=== PATIENT | female | born 1985 | race Caucasian/White ===

== ENCOUNTER 2016-06-29 22:26 | Emergency (ER) | payer SELFPAY ==
[2016-06-29 22:58] LABS: Urine Bacteria 2+ (Absent); Urine Bilirubin Negative (Negative); Urine Glucose Negative (Negative); Urine Nitrite Negative (Negative)
[2016-06-29 23:05] LABS: Benzodiazepine Urine Screen None Detected (None Detect)
[2016-06-29] MEDS ORDERED: Sulfamethox/Trimethoprim DS 800/160* TAB PO ONE (23:52)
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
[2016-06-30 00:14] LABS: Hematocrit 33 % (35-47); Hemoglobin 11.1 g/dl (12.0-16.0); Mean Corpuscular HGB Conc 34 g/dl (31-36); Mean Corpuscular Hemoglobin 26 pg (27-31); Mean Corpuscular Volume 77 fL (80-97); Mean Platelet Volume 8 um3 (7.4-10.4); Red Blood Count 4.27 10^6/ul (4.0-5.4); Red Cell Distribution Width 14 % (10.5-15); White Blood Count 8.4 10^3/ul (3.5-10.8)
[2016-06-30 00:18] LABS: ALT 16 U/L (7-52); AST 15 U/L (13-39); Albumin 3.6 g/dL (3.2-5.2); Alkaline Phosphatase 53 U/L (34-104); Anion Gap 10 mmol/L (2-11); BUN/Creatinine Ratio 18.1 (8-20); Blood Urea Nitrogen 17 mg/dL (6-24); CO2 Carbon Dioxide 24 mmol/L (22-32); Calcium 9.1 mg/dL (8.6-10.3); Chloride 100 mmol/L (101-111); EGFR African American 91.2 (>60); EGFR Non-African American 70.9 (>60); Globulin 3.4 g/dL (2-4); Glucose 100 mg/dL (70-100); Potassium 3.3 mmol/L (3.5-5.0); Sodium 134 mmol/L (133-145)
[2016-06-30 00:56] LABS: Acetaminophen < 15 mcg/mL; Alcohol < 10 mg/dL (<10); Salicylate < 2.50 mg/dL (<30)
[2016-06-30 01:06] LABS: TSH (Thyroid Stimulating Horm) 4.71 mcIU/mL (0.34-5.60)
[2016-06-30] MEDS ORDERED: LORazepam TAB(*) 1 MG PO ONE (02:11)
[2016-06-30] MEDS ORDERED: LORazepam TAB(*) 1 MG ONE (02:14)
[2016-06-30 03:00] VITALS: BP 121/54
--- NOTE | 2016-07-03 07:42 | PN ---
Progress Note - Progress Note Note: Patient's cultures are positive for UTI. A message was left for her to call on her cell phone regarding which pharmacy she would like a prescription sent to, and instructions to call the ED back.
== END 2016-06-30 02:54 | disposition home or self-care (01) ==
LOC: ED 22:26
DX: F19.10 Other psychoactive substance abuse, uncomplicated (principal); N39.0 Urinary tract infection, site not specified; L03.90 Cellulitis, unspecified; Z00.8 Encounter for other general examination; F17.210 Nicotine dependence, cigarettes, uncomplicated
CPT/HCPCS: 36415; 80053; 80307; 80320; 80329; 81003; 81015; 84443; 84702; 85025; 87077; 87086; 87186; 99283; A9270-GY; G0480

== ENCOUNTER 2018-02-21 16:24 | Inpatient (IN) | payer SELFPAY ==
[2018-02-21] MEDS: NS 0.9% 1000 ML*IV.FLUID IV ONE ×2 (16:39→17:16)
[2018-02-21] MEDS ORDERED: Vancomycin(*) 1,000 MG in NS 0.9% 250 ML* 250 ML IVPB ONE (16:40)
[2018-02-21] MEDS ORDERED: Acetaminophen TAB* 325 MG PO ONE (16:42)
[2018-02-21] MEDS ORDERED: Levofloxacin 750 MG IVPREMIX(* 750 MG/150 ML BAG IVPB ONE (16:42)
[2018-02-21] MEDS ORDERED: Piperacillin/Tazobac ADVAN(*) 3.375 GM in NS 0.9% 100 ML* 100 ML IVPB ONE (16:42)
[2018-02-21] MEDS ORDERED: Dexamethasone IV* 4 MG/ML 1 ML (4 MG) IV SLOW PU ONE (16:43)
--- NOTE | 2018-02-21 17:22 | RAD ---
INDICATION: Altered mental status COMPARISON: None. TECHNIQUE: Single AP portable view of the chest was obtained. FINDINGS: Image quality is compromised due to the relative inferiority of a portable chest x-ray. The heart and mediastinum exhibit normal size and contour. The lungs are grossly clear. There is no evidence of a large pleural effusion. Visualized bones are normal for the patient's age. IMPRESSION: No radiographic evidence for acute cardiopulmonary abnormality on this portable chest x-ray.
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
[2018-02-21] MEDS ORDERED: NS 0.9% 250 ML* 250 ML ONE (17:26)
[2018-02-21] MEDS ORDERED: Iodixanol* (CONTRAST) 320 MG/ML 100 ML SDV IV ONE (17:29)
[2018-02-21 17:32] LABS: ABS Basophils 0 10^3/ul (0-0.2); ABS Eosinophils 0 10^3/ul (0-0.6); ABS Lymphocytes 0.3 10^3/ul (1.0-4.8); ABS Monocytes 0 10^3/ul (0-0.8); ABS Neutrophils 5.5 10^3/ul (1.5-7.7); ABS Nucleated RBC 0 10^3/ul; Eosinophil % 0.2 % (0-6); Hematocrit 34 % (35-47); Hemoglobin 11.3 g/dl (12.0-16.0); Lymphocyte % 5.3 % (25-47); Mean Corpuscular HGB Conc 33 g/dl (31-36); Mean Corpuscular Hemoglobin 28 pg (27-31); Mean Corpuscular Volume 84 fL (80-97); Mean Platelet Volume 8.9 um3 (7.4-10.4); Nucleated Red Blood Cells % 0.1; Platelet Count 138 10^3/ul (150-450); Red Blood Count 4.08 10^6/ul (4.00-5.40); Red Cell Distribution Width 16 % (10.5-15); White Blood Count 5.9 10^3/ul (3.5-10.8)
[2018-02-21 17:51] LABS: EGFR Non-African American 42.4 (>60)
[2018-02-21 18:08] LABS: INR 1.11 (0.77-1.02)
[2018-02-21] MEDS ORDERED: NS 0.9% 1000 ML* 1,000 ML IV ONE (18:28)
[2018-02-21 18:38] LABS: Body Fluid Source Cerebral Spinal
[2018-02-21] MEDS ORDERED: Norepinephrine 16MCG/ML IVPRE* 4,000 MCG/250 ML BAG IV ONE (18:46)
--- NOTE | 2018-02-21 18:48 | RAD ---
EXAM: CT Lumbar Spine With Intravenous Contrast CLINICAL HISTORY: 32 years old, female; Signs and symptoms; Other: Possible od; Additional info: Assess for epidural abscess TECHNIQUE: Axial computed tomography images of the lumbar spine with intravenous contrast. All CT scans at this facility use at least one of these dose optimization techniques: automated exposure control; mA and/or kV adjustment per patient size (includes targeted exams where dose is matched to clinical indication); or iterative reconstruction. Coronal and sagittal reformatted images were created and reviewed. CONTRAST: 75 mL of VISI administered intravenously. COMPARISON: No relevant prior studies available. FINDINGS: Vertebrae: See below. Discs/spinal canal/neural foramina: Mild degenerative disc disease at the L5-S1 level with posterior osteophyte formation. No spinal canal stenosis. No abscess. Soft tissues: Unremarkable. IMPRESSION: 1. No acute fracture, subluxation, or aggressive osseous lesion. 2. No epidural abscess. To contact [facility] with a general question: [facility] - [phone] For direct physician to physician contact: Physician Hotline - [phone] [facility] ([facility] Facility ID #[id number])
--- NOTE | 2018-02-21 18:50 | RAD ---
EXAM: CT Head Without Intravenous Contrast CLINICAL HISTORY: 32 years old, female; Pain; Additional info: Septic shock, drug user TECHNIQUE: Axial computed tomography images of the head/brain without intravenous contrast. All CT scans at this facility use at least one of these dose optimization techniques: automated exposure control; mA and/or kV adjustment per patient size (includes targeted exams where dose is matched to clinical indication); or iterative reconstruction. COMPARISON: BRAIN WO CT BRAIN WO 07/03/2015 5:38 PM FINDINGS: Brain: Unremarkable. No hemorrhage. No significant white matter disease. No edema. Ventricles: Unremarkable. No ventriculomegaly. Bones/joints: Unremarkable. No acute fracture. Soft tissues: Unremarkable. Sinuses: Unremarkable as visualized. No acute sinusitis. Mastoid air cells: Unremarkable as visualized. No mastoid effusion. IMPRESSION: 1. No acute intracranial abnormality. 2. No change from the comparison study. To contact [facility] with a general question: [facility] - [phone] For direct physician to physician contact: Physician Hotline - [phone] [facility] ([facility] Facility ID #[id number])
--- NOTE | 2018-02-21 18:52 | RAD ---
EXAM: CT Head With Intravenous Contrast CLINICAL HISTORY: 32 years old, female; Signs and symptoms; Other: Possible od; Additional info: Septic shock, drug user TECHNIQUE: Axial computed tomography images of the head/brain with intravenous contrast. All CT scans at this facility use at least one of these dose optimization techniques: automated exposure control; mA and/or kV adjustment per patient size (includes targeted exams where dose is matched to clinical indication); or iterative reconstruction. CONTRAST: 75 mL of administered intravenously. COMPARISON: BRAIN WO CT BRAIN WO 02/21/2018 5:41 PM FINDINGS: Brain: Unremarkable. No hemorrhage. No edema. Normal enhancement. Ventricles: Unremarkable. No ventriculomegaly. Bones/joints: Unremarkable. No acute fracture. Soft tissues: Unremarkable. Sinuses: Unremarkable as visualized. No acute sinusitis. Mastoid air cells: Unremarkable as visualized. No mastoid effusion. IMPRESSION: 1. Normal CT of the brain with enhancement. To contact [facility] with a general question: [facility] - [phone] For direct physician to physician contact: Physician Hotline - [phone] [facility] ([facility] Facility ID #[id number])
[2018-02-21 18:54] LABS: Urine Appearance Cloudy; Urine Blood 2+ (Negative); Urine Color Yellow; Urine Ketones Negative (Negative); Urine Protein 2+(100 mg/dL) (Negative); Urine Red Blood Cell 2+(6-10/hpf) (Absent); Urine Urobilinogen Negative (Negative); Urine White Blood Cell Trace(0-5/hpf) (Absent)
--- NOTE | 2018-02-21 18:57 | ED ---
Progress - Progress Note Progress Note: Revised the care of the physician stylist assistant who I cared for the patient in conjunction with. I performed a history and physical on this patient. I was present throughout the course of the lumbar puncture and performed the ibarra portions of the procedure myself. History: IV drug user presents with altered mental status. Found wandering on porch of the community. Found to be hot and tachycardic. Febrile on arrival here and able to provide a limited history. Recent use of heroin. Physical exam: Somnolent and altered with noted moderate distress. Hypotensive. Tachycardic but not tachypneic. Abdomen soft. No evidence of abscess in the extremities. Tract paredes noted. Mild neck discomfort but difficult to ascertain meningismus. No stiffness. No cardiac murmur. Plan: This patient presents with likely sepsis with superimposed drug effect. She is altered. A head CT with and without contrast was obtained after discussion with ICU physician and neurology. A lumbar spine CT was also obtained prior to lumbar puncture and the possibility of epidural abscess. She has no neurologic deficit other than her confusion. Lumbar puncture was performed without difficulty and clear fluid was obtained. Triple antibiotics, greater than 30 mL per kilo of IV fluids was given. Blood pressures have maintained in the 80s and 90s. IV vasopressors had not yet had to be given. She does have good capillary refill and a heart rate hovering between 100-105. The hospitalist was contacted for admission. Consultations: Dr. Anderson from ICU, Dr. lopez from neurology, Dr. Oneil from hospitalist medicine Critical care time of greater than 75 minutes performed by co Critical care time is exclusive of separately billable procedures. Course/Dx - Course Course Of Treatment: During the course of treatment, patient is noted to be hypotensive on arrival at 80/60, temporal temp at 106.4, tachycardic at 109 and respirations of 30. Septic protocol initiated including a CT brain with and without contrast. She is given 2200 IV normal saline, Decadron, Levaquin and Zosyn. 4 blood cultures obtained, 2 from each arm. - Diagnoses Provider Diagnoses: Septic shock, Heroin abuse - Critical Care Time Critical Care Time: 75-104 min Discharge - Sign-Out/Discharge Documenting (check all that apply): Patient Departure - Discharge Plan Condition: Critical Disposition: ADMITTED TO [facility] Referrals: Samreen Spears MD [Primary Care Provider] - - Billing Disposition and Condition Condition: CRITICAL Disposition: Admitted to [facility] - Attestation Statements Document Initiated by Scribdemario: No
[2018-02-21] MEDS ORDERED: Thiamine IV* 100 MG/ML 2 ML VIAL IV SCH (20:40)
[2018-02-21] MEDS ORDERED: Calcium Gluconate INJ* 1 GM in NS 0.9% 50 ML* 50 ML IVPB ONE (20:42)
[2018-02-21] MEDS ORDERED: NS 0.9% 1000 ML* 1,000 ML IV SCH (20:45)
[2018-02-21] MEDS ORDERED: Vancomycin(*) 1,250 MG in NS 0.9% 250 ML* 250 ML IVPB ONE (20:46)
--- NOTE | 2018-02-21 21:08 | ADMNOTE ---
Subjective Date of Service: 02/21/18 Interval History: hpi this is 32 yr old female was brought to er after she was found wondering around on streets. pt was found to spike high temp to 102.2 sbp was in the 70s and tachycardia at rate of 107. intial wbc is [address] neg spine ct neg of abscess chest x ray neg. lactic is 3.4 but even ua is neg. urine toxin is + opioids pt subsequently went for spinal tap showed wbc of 3 but neg of sig neutrophile pred/glucose is 73 and tp is 30. pt was found to have very elevated lft not sure she has hx of ivda and etoh dep ---> hep b/c screening sent for am lab pt got levaquin/zosyn/vanco from the er for ? Family History: Findings - unable due to ms change Social History: Findings - unable due to ms change Past Medical History: Findings - possible ivda urine + opiods ? etoh Review of Systems - Measurements Intake and Output: Intake and Output Last 24 Hours 02/19/18 02/20/18 02/21/18 02/22/18 06:59 06:59 06:59 06:59 Intake Total 3100 Balance 3100 Weight 161 lb Intake: IV Fluids 3100 - Review of Systems General Comments: lethargic and confused unable Objective Active Medications: Heparin Sodium (Porcine) (Heparin Vial(*)) 5,000 units SUBCUT Q8HR JONI Norepinephrine Bitartrate (Levophed 16 Mcg/Ml Premix Bag*) 4,000 mcg in 250 mls @ 9.375 mls/hr IV ED ONCE ONE; Protocol Stop: 02/22/18 21:25 Sodium Chloride (Ns 0.9% 1000 Ml*) 1,000 mls @ 125 mls/hr IV PER RATE JONI Calcium Gluconate 1 gm/ Sodium (Chloride) 60 mls @ 60 mls/hr IVPB ONCE ONE Stop: 02/21/18 21:41 Vancomycin HCl 1,250 mg/ (Sodium Chloride) 250 mls @ 166.667 mls/hr IVPB ONCE ONE Stop: 02/21/18 22:15 Piperacillin Sod/Tazobactam (Sod 3.375 gm/ Sodium Chloride) 100 mls @ 25 mls/ hr IVPB Q8H JONI Thiamine HCl (Vitamin B1 Iv*) 100 mg IV DAILY JONI Vital Signs - 8 hr 02/21/18 02/21/18 02/21/18 16:30 16:32 16:35 Temperature 103.2 F Pulse Rate 114 112 113 Respiratory 23 14 Rate Blood Pressure 102/59 102/59 (mmHg) O2 Sat by Pulse 97 98 98 Oximetry 02/21/18 02/21/18 02/21/18 16:36 16:39 17:00 Temperature Pulse Rate 114 115 109 Respiratory 24 25 21 Rate Blood Pressure 89/49 94/56 98/69 (mmHg) O2 Sat by Pulse 99 98 99 Oximetry 02/21/18 02/21/18 02/21/18 17:01 17:07 17:13 Temperature 101.8 F 102.4 F Pulse Rate 110 110 110 Respiratory 28 21 22 Rate Blood Pressure 93/65 98/64 (mmHg) O2 Sat by Pulse 98 99 100 Oximetry 02/21/18 02/21/18 02/21/18 17:19 17:28 17:55 Temperature 101.8 F 102.7 F 102.6 F Pulse Rate 109 108 105 Respiratory 30 20 21 Rate Blood Pressure 98/64 91/62 94/57 (mmHg) O2 Sat by Pulse 100 98 97 Oximetry 02/21/18 02/21/18 02/21/18 18:00 18:10 18:14 Temperature 102.6 F 102.4 F 102.4 F Pulse Rate 106 107 105 Respiratory 20 28 19 Rate Blood Pressure 77/35 75/41 (mmHg) O2 Sat by Pulse 97 97 98 Oximetry 02/21/18 02/21/18 02/21/18 18:23 18:25 18:27 Temperature 102.2 F 102.2 F 102.2 F Pulse Rate 106 105 106 Respiratory 20 20 19 Rate Blood Pressure 72/40 72/39 93/63 (mmHg) O2 Sat by Pulse 95 95 97 Oximetry 02/21/18 02/21/18 02/21/18 18:37 18:40 18:41 Temperature 101.8 F 101.8 F 101.8 F Pulse Rate 108 105 107 Respiratory 20 8 16 Rate Blood Pressure 96/62 85/60 83/57 (mmHg) O2 Sat by Pulse 95 95 96 Oximetry 02/21/18 02/21/18 02/21/18 18:43 18:52 18:55 Temperature 101.8 F 101.5 F 101.5 F Pulse Rate 104 102 104 Respiratory 17 16 24 Rate Blood Pressure 90/57 87/59 89/54 (mmHg) O2 Sat by Pulse 95 96 97 Oximetry 02/21/18 02/21/18 02/21/18 19:00 19:03 19:10 Temperature 101.3 F 101.5 F 101.5 F Pulse Rate 103 102 102 Respiratory 17 18 5 Rate Blood Pressure 97/62 87/59 (mmHg) O2 Sat by Pulse 98 98 97 Oximetry 02/21/18 02/21/18 02/21/18 19:25 19:40 19:55 Temperature 101.1 F 101.1 F 101.3 F Pulse Rate 101 101 98 Respiratory 18 20 19 Rate Blood Pressure 86/60 92/63 92/60 (mmHg) O2 Sat by Pulse 96 97 97 Oximetry 02/21/18 20:00 Temperature 101.3 F Pulse Rate 101 Respiratory 20 Rate Blood Pressure (mmHg) O2 Sat by Pulse 96 Oximetry Oxygen Devices in Use Now: None Eyes: No Scleral Icterus, PERRLA Ears/Nose/Mouth/Throat: - - pink nasal mucosa unable to examine her oral cavity due to her ms Neck: NL Appearance and Movements; NL JVP, Trachea Midline, No Thyroid Enlargement, Masses Respiratory: Symmetrical Chest Expansion and Respiratory Effort, Clear to Auscultation Cardiovascular: NL Sounds; No Murmurs; No JVD, RRR, No Edema Abdominal: NL Sounds; No Tenderness; No Distention Extremities: No Edema Skin: No Rash or Ulcers Neurological: - - arousable by voice then starting mourning does not follow commands but plantar reflex downwards Result Diagrams: 02/22/18 06:00 02/22/18 06:00 Microbiology and Other Data: Microbiology 02/21/18 18:25 CSF Gram Stain (Tube 3) - Preliminary Cerebral Spinal Fluid 02/21/18 17:13 Influenza Types A,B Antigen - Final Nasal Specimen received for Influenza A/B Molecular testing Assess/Plan/Problems-Billing Assessment: 32 yr old female was brought in for wondering on streets with ms change. she had spinal tap and head/spine ct/ chest x ray all neg flu a/b neg wbc wnl but lactate is 3.4 ---> spike to 102.2 ---> fever of unknown origin now got zosyn/vanco/levaquin from er. her lft is very elevated and urine toxin is + opioids - Patient Problems (1) Fever of unknown origin Current Visit: Yes Status: Acute Comment: - blood cx pending - consider id consult in am - will continue vanco and zosyn for now - tte in am (2) LFT elevation Current Visit: Yes Status: Acute Code(s): R94.5 - ABNORMAL RESULTS OF LIVER FUNCTION STUDIES SNOMED Code(s): 206767643 Comment: not sure whether she is a drinking or ivda with resultant hep b/c - screening hep b/c in am - moniter lft trend - consider abd sono in am (3) Altered mental state Current Visit: Yes Status: Acute Code(s): R41.82 - ALTERED MENTAL STATUS, UNSPECIFIED SNOMED Code(s): 803181336 Comment: - etiology unclear not sure she used high dose of opiods as a cause -consider neuro consult in am - ammonia wnl (4) Septic shock Current Visit: Yes Status: Acute Code(s): A41.9 - SEPSIS, UNSPECIFIED ORGANISM; R65.21 - SEVERE SEPSIS WITH SEPTIC SHOCK SNOMED Code(s): 09571136 Comment: sbp on admission was 70s ( baseline sbp 120 ) got 4 liter of ivf and abx sbp finally went up to 90s ----> will continue current mgt no pressors yet
[2018-02-21] MEDS: Thiamine IV* 100 MG in NS 0.9% 50 ML* 50 ML IV SCH (23:23)
[2018-02-22] MEDS: Piperacillin/Tazobac ADVAN(*) 3.375 GM in NS 0.9% 100 ML* 100 ML IVPB SCH ×4 (00:09→22:35)
[2018-02-22] MEDS: Heparin VIAL(*) 5000 UNITS/ML VIAL (FIVE THOUSAND) SUBCUT SCH ×4 (00:17→22:24)
[2018-02-22 06:24] LABS: Hematocrit 35 % (35-47); Hemoglobin 11.4 g/dl (12.0-16.0); Mean Corpuscular HGB Conc 33 g/dl (31-36); Mean Corpuscular Hemoglobin 27 pg (27-31); Mean Corpuscular Volume 83 fL (80-97); Mean Platelet Volume 10.3 um3 (7.4-10.4); Platelet Count 172 10^3/ul (150-450); Red Cell Distribution Width 16 % (10.5-15); White Blood Count 25.7 10^3/ul (3.5-10.8)
[2018-02-22 06:45] LABS: EGFR Non-African American 62.2 (>60)
[2018-02-22 07:30] LABS: ABS Basophils 0 10^3/ul (0-0.2); ABS Neutrophils 18.8 10^3/ul (1.5-7.7); ABS Neutrophils 24.4 10^3/ul (1.5-7.7); Monocytes % 1 % (0-7)
--- NOTE | 2018-02-22 08:28 | CONSULT ---
Consult Consult: PCCM Consult CC: AMS/Fever HPI: 32F with h/o polysubstance abuse brought in by EMS after being found on a neighbors porch. The patient admitted to using a lot of heroin and that she had been sick for the past few days. The patient was found to have an elevated wbc count, fever to 102, elevated lfts, acute renal failure. LP was performed which was negative. CT of her brain and spine were done which did not show any epidural abscess. The patient denies any cough or shortness of breath. No frequency/urgency, or dysuria. She denies any history of endocarditis. The patient states she is hungry and needs something for pain. ROS - as per HPI PMHx - polysubstance abuse PSHx - denies All - nkda SocHx - +polysubstance abuse FamHx - denies PE Vital Signs: Temp Pulse Resp BP Pulse Ox 98.8 F 59 19 114/98 83 02/22/18 08:00 02/22/18 06:31 02/22/18 06:00 02/22/18 07:30 02/22/18 06:31 Gen - nad heent - ncat, eomi, perrl neck - no jvd cv - s1/s2, no appreciable murmurs lungs - cta, no wheeze abd - soft, nt, nd ext - no cce neuro - non-focal Labs Laboratory Results - last 24 hr 02/21/18 02/21/18 02/21/18 17:20 17:20 17:20 WBC 5.9 RBC 4.08 Hgb 11.3 L Hct 34 L MCV 84 MCH 28 MCHC 33 RDW 16 H Plt Count 138 L MPV 8.9 Neut % (Auto) 93.6 H Lymph % (Auto) 5.3 L [place] % (Auto) 0.7 Eos % (Auto) 0.2 Baso % (Auto) 0.2 Absolute Neuts (auto) 5.5 Absolute Lymphs (auto) 0.3 L Absolute Monos (auto) 0 Absolute Eos (auto) 0 Absolute Basos (auto) 0 Absolute Nucleated RBC 0 Immature Gran % Neutrophils % Band Neutrophils % Lymphocytes % Monocytes % Eosinophils % Basophils % Metamyelocytes % Myelocytes % Nucleated RBC % 0.1 Abs Neuts (Manual) Abs Lymphs (Manual) Abs Monocytes (Manual) Absolute Eos (Manual) Abs Basophils (Manual) Normal RBC Morphology INR (Anticoag Therapy) 1.11 H APTT 21.8 L Fibrinogen 217.8 ABG pH ABG pCO2 ABG pO2 ABG HCO3 ABG O2 Saturation ABG Base Excess Sodium 138 Potassium TNP Chloride 112 H Carbon Dioxide 20 L Anion Gap 6 BUN 30 H Creatinine 1.45 H Est GFR ( Amer) 51.3 Est GFR (Non-Af Amer) 42.4 BUN/Creatinine Ratio 20.7 H Glucose 100 POC Glucose (mg/dL) Lactic Acid Calcium 7.8 L Phosphorus Magnesium Total Bilirubin 0.70 AST TNP ALT 213 H Alkaline Phosphatase 189 H Ammonia Total Creatine Kinase 51 Troponin I 0.02 C-Reactive Protein 5.73 Total Protein 5.2 L Albumin 2.9 L Globulin 2.3 Albumin/Globulin Ratio 1.3 Triglycerides Cholesterol LDL Cholesterol HDL Cholesterol Lipase TSH Free T4 Urine Color Urine Appearance Urine pH Ur Specific [place] Urine Protein Urine Ketones Urine Blood Urine Nitrate Urine Bilirubin Urine Urobilinogen Ur Leukocyte Esterase Urine WBC (Auto) Urine RBC (Auto) Ur Squamous Epith Cells Urine Bacteria Hyaline Casts Urine Glucose Fluid Source Fluid Volume Fluid Color Fluid Appearance Fluid WBC Fluid RBC Fluid Tot Cell Count Fluid Lymphocytes Fluid Monocytes CSF Cell Count Tube # CSF Glucose CSF Total Protein Urine Opiates Screen Ur Barbiturates Screen Ur Phencyclidine Scrn Ur Amphetamines Screen U Benzodiazepines Scrn Urine Cocaine Screen U Cannabinoids Screen Serum Alcohol < 10 Monoscreen Influenza A (Rapid) Influenza B (Rapid) 02/21/18 02/21/18 02/21/18 17:20 17:21 17:25 WBC RBC Hgb Hct MCV MCH MCHC RDW Plt Count MPV Neut % (Auto) Lymph % (Auto) [place] % (Auto) Eos % (Auto) Baso % (Auto) Absolute Neuts (auto) Absolute Lymphs (auto) Absolute Monos (auto) Absolute Eos (auto) Absolute Basos (auto) Absolute Nucleated RBC Immature Gran % Neutrophils % Band Neutrophils % Lymphocytes % Monocytes % Eosinophils % Basophils % Metamyelocytes % Myelocytes % Nucleated RBC % Abs Neuts (Manual) Abs Lymphs (Manual) Abs Monocytes (Manual) Absolute Eos (Manual) Abs Basophils (Manual) Normal RBC Morphology INR (Anticoag Therapy) APTT Fibrinogen ABG pH 7.44 ABG pCO2 26 L ABG pO2 93 ABG HCO3 20.7 ABG O2 Saturation 98.8 H ABG Base Excess -5.3 L Sodium Potassium Chloride Carbon Dioxide Anion Gap BUN Creatinine Est GFR ( Amer) Est GFR (Non-Af Amer) BUN/Creatinine Ratio Glucose POC Glucose (mg/dL) Lactic Acid 3.4 H* Calcium Phosphorus Magnesium Total Bilirubin AST ALT Alkaline Phosphatase Ammonia Total Creatine Kinase Troponin I C-Reactive Protein Total Protein Albumin Globulin Albumin/Globulin Ratio Triglycerides Cholesterol LDL Cholesterol HDL Cholesterol Lipase TSH Free T4 Urine Color Urine Appearance Urine pH Ur Specific [place] Urine Protein Urine Ketones Urine Blood Urine Nitrate Urine Bilirubin Urine Urobilinogen Ur Leukocyte Esterase Urine WBC (Auto) Urine RBC (Auto) Ur Squamous Epith Cells Urine Bacteria Hyaline Casts Urine Glucose Fluid Source Fluid Volume Fluid Color Fluid Appearance Fluid WBC Fluid RBC Fluid Tot Cell Count Fluid Lymphocytes Fluid Monocytes CSF Cell Count Tube # CSF Glucose CSF Total Protein Urine Opiates Screen Ur Barbiturates Screen Ur Phencyclidine Scrn Ur Amphetamines Screen U Benzodiazepines Scrn Urine Cocaine Screen U Cannabinoids Screen Serum Alcohol Monoscreen Influenza A (Rapid) Negative Influenza B (Rapid) Negative 02/21/18 02/21/18 02/21/18 18:18 18:18 18:25 WBC RBC Hgb Hct MCV MCH MCHC RDW Plt Count MPV Neut % (Auto) Lymph % (Auto) [place] % (Auto) Eos % (Auto) Baso % (Auto) Absolute Neuts (auto) Absolute Lymphs (auto) Absolute Monos (auto) Absolute Eos (auto) Absolute Basos (auto) Absolute Nucleated RBC Immature Gran % Neutrophils % Band Neutrophils % Lymphocytes % Monocytes % Eosinophils % Basophils % Metamyelocytes % Myelocytes % Nucleated RBC % Abs Neuts (Manual) Abs Lymphs (Manual) Abs Monocytes (Manual) Absolute Eos (Manual) Abs Basophils (Manual) Normal RBC Morphology INR (Anticoag Therapy) APTT Fibrinogen ABG pH ABG pCO2 ABG pO2 ABG HCO3 ABG O2 Saturation ABG Base Excess Sodium Potassium Chloride Carbon Dioxide Anion Gap BUN Creatinine Est GFR ( Amer) Est GFR (Non-Af Amer) BUN/Creatinine Ratio Glucose POC Glucose (mg/dL) Lactic Acid Calcium Phosphorus Magnesium Total Bilirubin AST ALT Alkaline Phosphatase Ammonia Total Creatine Kinase Troponin I C-Reactive Protein Total Protein Albumin Globulin Albumin/Globulin Ratio Triglycerides Cholesterol LDL Cholesterol HDL Cholesterol Lipase TSH Free T4 Urine Color Yellow Urine Appearance Cloudy Urine pH 5.0 Ur Specific [place] 1.010 Urine Protein 2+(100 mg/dl) A Urine Ketones Negative Urine Blood 2+ A Urine Nitrate Negative Urine Bilirubin Negative Urine Urobilinogen Negative Ur Leukocyte Esterase Negative Urine WBC (Auto) Trace(0-5/hpf) Urine RBC (Auto) 2+(6-10/hpf) A Ur Squamous Epith Cells Present A Urine Bacteria 1+ A Hyaline Casts Present A Urine Glucose Negative Fluid Source Fluid Volume Fluid Color Fluid Appearance Fluid WBC Fluid RBC Fluid Tot Cell Count Fluid Lymphocytes Fluid Monocytes CSF Cell Count Tube # CSF Glucose 73 H CSF Total Protein 30 Urine Opiates Screen Presumptive positive A Ur Barbiturates Screen None detected Ur Phencyclidine Scrn None detected Ur Amphetamines Screen None detected U Benzodiazepines Scrn None detected Urine Cocaine Screen None detected U Cannabinoids Screen None detected Serum Alcohol Monoscreen Influenza A (Rapid) Influenza B (Rapid) 02/21/18 02/21/18 02/21/18 18:25 18:59 18:59 WBC RBC Hgb Hct MCV MCH MCHC RDW Plt Count MPV Neut % (Auto) Lymph % (Auto) [place] % (Auto) Eos % (Auto) Baso % (Auto) Absolute Neuts (auto) Absolute Lymphs (auto) Absolute Monos (auto) Absolute Eos (auto) Absolute Basos (auto) Absolute Nucleated RBC Immature Gran % Neutrophils % Band Neutrophils % Lymphocytes % Monocytes % Eosinophils % Basophils % Metamyelocytes % Myelocytes % Nucleated RBC % Abs Neuts (Manual) Abs Lymphs (Manual) Abs Monocytes (Manual) Absolute Eos (Manual) Abs Basophils (Manual) Normal RBC Morphology INR (Anticoag Therapy) APTT Fibrinogen ABG pH ABG pCO2 ABG pO2 ABG HCO3 ABG O2 Saturation ABG Base Excess Sodium Potassium 4.0 Chloride Carbon Dioxide Anion Gap BUN Creatinine Est GFR ( Amer) Est GFR (Non-Af Amer) BUN/Creatinine Ratio Glucose POC Glucose (mg/dL) Lactic Acid Calcium Phosphorus Magnesium Total Bilirubin AST 376 H ALT Alkaline Phosphatase Ammonia Total Creatine Kinase Troponin I C-Reactive Protein Total Protein Albumin Globulin Albumin/Globulin Ratio Triglycerides Cholesterol LDL Cholesterol HDL Cholesterol Lipase TSH Free T4 Urine Color Urine Appearance Urine pH Ur Specific [place] Urine Protein Urine Ketones Urine Blood Urine Nitrate Urine Bilirubin Urine Urobilinogen Ur Leukocyte Esterase Urine WBC (Auto) Urine RBC (Auto) Ur Squamous Epith Cells Urine Bacteria Hyaline Casts Urine Glucose Fluid Source Cerebral spinal Fluid Volume 1 Fluid Color Colorless Fluid Appearance Clear Fluid WBC 3 Fluid RBC 1 Fluid Tot Cell Count 7 Fluid Lymphocytes 5 Fluid Monocytes 2 CSF Cell Count Tube # 4 CSF Glucose CSF Total Protein Urine Opiates Screen Ur Barbiturates Screen Ur Phencyclidine Scrn Ur Amphetamines Screen U Benzodiazepines Scrn Urine Cocaine Screen U Cannabinoids Screen Serum Alcohol Monoscreen Negative Influenza A (Rapid) Influenza B (Rapid) 02/21/18 02/21/18 02/22/18 19:48 21:23 06:00 WBC 25.7 H RBC 4.20 Hgb 11.4 L Hct 35 MCV 83 MCH 27 MCHC 33 RDW 16 H Plt Count 172 MPV 10.3 Neut % (Auto) Not Reportable Lymph % (Auto) Not Reportable [place] % (Auto) Not Reportable Eos % (Auto) Not Reportable Baso % (Auto) Not Reportable Absolute Neuts (auto) 24.4 H Absolute Lymphs (auto) Not Reportable Absolute Monos (auto) Not Reportable Absolute Eos (auto) Not Reportable Absolute Basos (auto) Not Reportable Absolute Nucleated RBC Not Reportable Immature Gran % 20 H Neutrophils % 73 Band Neutrophils % 10 H Lymphocytes % 6 L Monocytes % 1 Eosinophils % 0 Basophils % 0 Metamyelocytes % 9 H Myelocytes % 1 Nucleated RBC % Not Reportable Abs Neuts (Manual) 18.8 H Abs Lymphs (Manual) 1.5 Abs Monocytes (Manual) 0.3 Absolute Eos (Manual) 0 Abs Basophils (Manual) 0 Normal RBC Morphology Normal INR (Anticoag Therapy) APTT Fibrinogen ABG pH ABG pCO2 ABG pO2 ABG HCO3 ABG O2 Saturation ABG Base Excess Sodium Potassium Chloride Carbon Dioxide Anion Gap BUN Creatinine Est GFR ( Amer) Est GFR (Non-Af Amer) BUN/Creatinine Ratio Glucose POC Glucose (mg/dL) 144 H Lactic Acid Calcium Phosphorus Magnesium Total Bilirubin AST ALT Alkaline Phosphatase Ammonia 26 Total Creatine Kinase Troponin I C-Reactive Protein Total Protein Albumin Globulin Albumin/Globulin Ratio Triglycerides Cholesterol LDL Cholesterol HDL Cholesterol Lipase TSH Free T4 Urine Color Urine Appearance Urine pH Ur Specific [place] Urine Protein Urine Ketones Urine Blood Urine Nitrate Urine Bilirubin Urine Urobilinogen Ur Leukocyte Esterase Urine WBC (Auto) Urine RBC (Auto) Ur Squamous Epith Cells Urine Bacteria Hyaline Casts Urine Glucose Fluid Source Fluid Volume Fluid Color Fluid Appearance Fluid WBC Fluid RBC Fluid Tot Cell Count Fluid Lymphocytes Fluid Monocytes CSF Cell Count Tube # CSF Glucose CSF Total Protein Urine Opiates Screen Ur Barbiturates Screen Ur Phencyclidine Scrn Ur Amphetamines Screen U Benzodiazepines Scrn Urine Cocaine Screen U Cannabinoids Screen Serum Alcohol Monoscreen Influenza A (Rapid) Influenza B (Rapid) 02/22/18 06:00 WBC RBC Hgb Hct MCV MCH MCHC RDW Plt Count MPV Neut % (Auto) Lymph % (Auto) [place] % (Auto) Eos % (Auto) Baso % (Auto) Absolute Neuts (auto) Absolute Lymphs (auto) Absolute Monos (auto) Absolute Eos (auto) Absolute Basos (auto) Absolute Nucleated RBC Immature Gran % Neutrophils % Band Neutrophils % Lymphocytes % Monocytes % Eosinophils % Basophils % Metamyelocytes % Myelocytes % Nucleated RBC % Abs Neuts (Manual) Abs Lymphs (Manual) Abs Monocytes (Manual) Absolute Eos (Manual) Abs Basophils (Manual) Normal RBC Morphology INR (Anticoag Therapy) APTT Fibrinogen ABG pH ABG pCO2 ABG pO2 ABG HCO3 ABG O2 Saturation ABG Base Excess Sodium 142 Potassium 3.9 Chloride 113 H Carbon Dioxide 20 L Anion Gap 9 BUN 21 Creatinine 1.04 H Est GFR ( Amer) 75.3 Est GFR (Non-Af Amer) 62.2 BUN/Creatinine Ratio 20.2 H Glucose 127 H POC Glucose (mg/dL) Lactic Acid Calcium 8.4 L Phosphorus 4.0 Magnesium 1.5 L Total Bilirubin 0.60 AST 170 H ALT 190 H Alkaline Phosphatase 123 H Ammonia Total Creatine Kinase Troponin I C-Reactive Protein Total Protein 5.7 L Albumin 3.2 Globulin 2.5 Albumin/Globulin Ratio 1.3 Triglycerides 57 Cholesterol 110 LDL Cholesterol 64 HDL Cholesterol 35.0 Lipase < 10 L TSH 0.45 Free T4 1.14 H Urine Color Urine Appearance Urine pH Ur Specific [place] Urine Protein Urine Ketones Urine Blood Urine Nitrate Urine Bilirubin Urine Urobilinogen Ur Leukocyte Esterase Urine WBC (Auto) Urine RBC (Auto) Ur Squamous Epith Cells Urine Bacteria Hyaline Casts Urine Glucose Fluid Source Fluid Volume Fluid Color Fluid Appearance Fluid WBC Fluid RBC Fluid Tot Cell Count Fluid Lymphocytes Fluid Monocytes CSF Cell Count Tube # CSF Glucose CSF Total Protein Urine Opiates Screen Ur Barbiturates Screen Ur Phencyclidine Scrn Ur Amphetamines Screen U Benzodiazepines Scrn Urine Cocaine Screen U Cannabinoids Screen Serum Alcohol Monoscreen Influenza A (Rapid) Influenza B (Rapid) Imaging CXR 02/21 IMPRESSION: No radiographic evidence for acute cardiopulmonary abnormality on this portable chest x-ray. Lumbar Spine CT 02/21 IMPRESSION: 1. No acute fracture, subluxation, or aggressive osseous lesion. 2. No epidural abscess. Brain CT 02/21 IMPRESSION: 1. No acute intracranial abnormality. 2. No change from the comparison study. Impression 32F with h/o polysubstance abuse presents with AMS and Fever, acute renal failure, transaminitis. Sepsis? Heroin overdose. Plan Neuro - AMS - 2/2 heroin overdose - mental status now improved - ct head negative - monitor for withdrawal CV - hypotension - resolved with iv fluids - tte pending Pulm - oxygenating ok ID - sepsis - unclear source - tte pending to eval for endocarditis - on empiric abx - f/u cultures GI -transaminitis - check ruq sono - check hepatitis profile - may be related to hypotension - npo for now Renal - acute renal failure - 2/s sepsis and volume depletion - improving with iv fluids Heme - monitor cbc Endo - tsh normal lines - piv ppx - gi/dvt Full Code Patient hemodynamically stable and ok for transfer to medical floor Critical Care Time: 60 mins
[2018-02-22] MEDS: Thiamine IV* 100 MG in NS 0.9% 50 ML* 50 ML IV SCH (09:35)
[2018-02-22] MEDS ORDERED: Magnesium Sulfate IV* 3 GM in NS 0.9% 100 ML* 100 ML IVPB ONE (09:45)
--- NOTE | 2018-02-22 12:00 | RAD ---
HISTORY: transaminitis COMPARISONS: July 03, 2015 TECHNIQUE: Multiple transverse and longitudinal ultrasound images were obtained of the right upper quadrant of the abdomen using grayscale and color Doppler imaging. FINDINGS: LIVER: The liver is normal in shape, size, contour, and echogenicity. There are no focal parenchymal masses. There is normal hepatopedal flow of the portal vein on Doppler imaging. BILIARY TREE: There is no intrahepatic or extrahepatic biliary dilatation. The common duct measures 0.3 cm. GALLBLADDER: There is a small amount of pericholecystic fluid. There is no sonographic Martínez's sign or appreciable cholelithiasis. PANCREAS: The head of the pancreas is unremarkable. The tail of the pancreas is not well visualized secondary to overlying bowel gas. RIGHT KIDNEY: The right kidney is normal in shape, size, contour, and echogenicity. There is no hydronephrosis or nephrolithiasis. The right kidney measures 13.5 x 4.8 x 5.3 cm. AORTA AND IVC: The aorta and IVC are unremarkable. FLUID: There are no pleural effusions. There is a trace amount of fluid within the hepatorenal recess.. OTHER FINDINGS: None. IMPRESSION: TRACE AMOUNT OF ASCITES WITH A SMALL AMOUNT OF PERICHOLECYSTIC FLUID.
--- NOTE | 2018-02-22 12:42 | ECHO ---
Patient: DEE MENDIOLA [facility] Rec#: [id number] : 1985 Date: 02/22/2018 Age: 32y Height: 157 cm / 61.8 in Weight: 73.03 kg / 161.0 lbs Sex: F BSA: 1.74 Room#: [facility] Admit Date#: 02/21/2018 Type: Inpatient Referring: Analia Jorgensen Reading: Hunter Hammond MD Civil Engineering Assistant: Darline Garza RDCS CC: ANNE MORALES Transthoracic Echocardiogram Indication: Fever, AMS. BP: 132/86 HR: 58 Rhythm: Bradycardia Findings History: IVDA, Hepatitis. Technical Comments: The study quality is good. Completed at 0845. Left Ventricle: The left ventricular chamber size is normal. There is no left ventricular hypertrophy. Global left ventricular wall motion and contractility are within normal limits. Left ventricular systolic function is at the lower limits of normal. The estimated ejection fraction is 50-55%. There is no consistent Doppler evidence of clinically significant diastolic dysfunction. Left Atrium: The left atrium is mildly dilated. Right Ventricle: Moderator Band present. The right ventricular cavity size is normal. The right ventricular global systolic function is normal. Right Atrium: The right atrial cavity size is normal. Aortic Valve: The aortic valve is trileaflet. The aortic valve leaflets are mildly thickened. There is mild aortic regurgitation. There is no evidence of aortic stenosis. The measured aortic regurgitation pressure half-time is 469 msec. Mitral Valve: The mitral valve leaflets are mildly thickened. There is mild to moderate mitral regurgitation. There is no evidence of mitral stenosis. Tricuspid Valve: The tricuspid valve leaflets are normal. There is mild to moderate tricuspid regurgitation. The right ventricular systolic pressure is estimated at 26 mmHg. No pulmonary hypertension is noted. There is no tricuspid stenosis. Pulmonic Valve: The pulmonic valve appears normal. There is a trace pulmonic regurgitation. There is no pulmonic stenosis. Pericardium: There is no significant pericardial effusion. Aorta: There is no dilatation of the ascending aorta. There is no dilatation of the aortic arch. The aortic root is normal in size. Pulmonary Artery: The main pulmonary artery appears normal. Venous: The inferior vena cava appears normal in size. There is a greater than 50% respiratory change in the inferior vena cava dimension. Summary: There was not any prior study for comparison. Conclusions Global left ventricular wall motion and contractility are within normal limits. Left ventricular systolic function is at the lower limits of normal. The estimated ejection fraction is 50-55%. There is mild aortic regurgitation. There is mild to moderate mitral regurgitation. There is mild to moderate tricuspid regurgitation. No pulmonary hypertension is noted. There is no significant pericardial effusion. No obvious masses Measurements Name Value Normal Range RVIDd (AP) 2D 3.4 cm (0.9 - 2.6) RVDdMajor (2D) 3.3 cm (2.2 - 4.4) RAd ISD 4CH 4.6 cm (3.4 - 4.9) RA (A4C)W 3.6 cm (2.9 - 4.6) IVSd (2D) 0.9 cm (0.6 - 1) LVPWd (2D) 0.8 cm (0.6 - 1) LVIDd (2D) 4.9 cm (3.6 - 5.4) LVIDs (2D) 3.3 cm - LV FS (2D) 32 % (25 - 45) Aortic Annulus 2.1 cm (1.4 - 2.6) Ao root diameter (2D) 2.6 cm (2.1 - 3.5) Ascending Ao 2.9 cm (2.1 - 3.4) Aortic arch 2.1 cm (1.8 - 3.4) LA dimension (AP) 2D 4 cm (2.3 - 3.8) LAd ISD 4CH 5.2 cm (2.9 - 5.3) LA ISD 4CH W 4.9 cm (2.5 - 4.5) Name Value Normal Range LA ESV BP (A/L) index 32 ml/m2 - Name Value Normal Range MV E-wave Vmax 0.6 m/sec - MV deceleration time 127 msec - MV A-wave Vmax 0.8 m/sec - MV E:A ratio 0.8 ratio - LV septal e' Vmax 0.08 m/sec - LV lateral e' Vmax 0.09 m/sec - LV E:e' septal ratio 7.5 ratio - LV E:e' lateral ratio 6.67 ratio - Name Value Normal Range AV Vmax 1.1 m/sec - AV VTI 23.5 cm - AV peak gradient 5 mmHg - AV mean gradient 2 mmHg - LVOT Vmax 0.9 m/sec - LVOT VTI 17.8 cm - LVOT peak gradient 3 mmHg - LVOT mean gradient 2 mmHg - AR PHT 469 msec - CIARA Vmax 0.7 m/sec - Name Value Normal Range MR Vmax 4.13 m/sec - MR VTI 142 cm - MR flow (PISA) 114.9 ml/sec - MR ERO 0.27 cm2 - MR PISA radius 0.5 cm - MR alias Vmax 73.2 cm/sec - Name Value Normal Range TR Vmax 2.4 m/sec - TR peak gradient 23 mmHg - RAP 3 mmHg - RVSP 26 mmHg - IVC diameter 2 cm - Name Value Normal Range PV Vmax 0.7 m/sec - PV peak gradient 2 mmHg -
[2018-02-22] MEDS ORDERED: Ketorolac INJ* 15 MG/ML 1 ML VIAL IV PUSH ONE (13:08)
[2018-02-22] MEDS ORDERED: Mouth Piece, Nicotine* 1 EACH CARTRIDGE INH PRN ×2 (13:29)
[2018-02-22] MEDS ORDERED: Nicotine Inhaler* 10 MG AMP INH PRN (13:29)
[2018-02-22] MEDS ORDERED: Vancomycin per Pharmacy* NOTE FOLLOW UP SCH (15:00)
[2018-02-22] MEDS ORDERED: Vancomycin(*) 1,250 MG in NS 0.9% 250 ML* 250 ML IVPB ONE (15:30)
[2018-02-22] MEDS ORDERED: NS 0.9% 1000 ML* 1,000 ML IV ONE (16:40)
[2018-02-22] MEDS ORDERED: NS 0.9% 500 ML* 500 ML IV ONE (21:35)
[2018-02-22] MEDS ORDERED: Naloxone* 0.4 MG/ML 1 ML VIAL IV ONE (23:00)
[2018-02-22] MEDS ORDERED: Naloxone* 0.4 MG/ML 1 ML VIAL ONE (23:03)
[2018-02-23] MEDS ORDERED: QUEtiapine TAB* 25 MG PO ONE (01:15)
[2018-02-23] MEDS: Vancomycin(*) 1,000 MG in NS 0.9% 250 ML* 250 ML IVPB SCH ×2 (02:25→11:10)
[2018-02-23] MEDS: Piperacillin/Tazobac ADVAN(*) 3.375 GM in NS 0.9% 100 ML* 100 ML IVPB SCH (05:25)
[2018-02-23] MEDS: Heparin VIAL(*) 5000 UNITS/ML VIAL (FIVE THOUSAND) SUBCUT SCH (05:25)
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
[2018-02-23] MEDS: Thiamine IV* 100 MG in NS 0.9% 50 ML* 50 ML IV SCH (09:00)
[2018-02-23] MEDS ORDERED: Nicotine PATCH 21 MG/24 HR* PATCH TRANSDERM SCH (09:00)
[2018-02-23 10:04] VITALS: BP 117/69
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
[2018-02-23 20:03] LABS: Lyme Disease Source CSF
--- NOTE | 2018-02-24 09:52 | DS ---
CC: Dr. Spears* DISCHARGE SUMMARY: DATE OF ADMISSION: 02/21/18 DATE OF DISCHARGE: 02/23/18 The patient left against medical advice. ATTENDING PHYSICIAN: Dr. Dunbar* (report dictated by Laxmi Palma, PEARL). PRIMARY CARE PROVIDER: Dr. Spears. The patient left against medical advice. DISCHARGE DIAGNOSES: 1. Severe sepsis secondary to gram-positive bacteremia thought to be secondary to IV drug use. 2. Current heroin abuse and opiate disorder. 3. Hepatitis C. 4. Electrolyte abnormalities. 5. Transaminitis. 6. Acute renal failure. HISTORY OF PRESENT ILLNESS AND HOSPITAL COURSE: Please note, this patient left against medical advice. This patient is a 32-year-old female, who was brought to the emergency department on 02/21/18 after she was found wandering around outside, noted to be confused and she was brought to the emergency department. She was found to have a temperature of 102.2, heart rate of 107 and low systolic blood pressures in the 80s and 90s. It was suspected that she was under the influence of opiates and her drug tox screen did come back positive for opiates. She was admitted to the hospitalist service. She was initially started on vancomycin and Zosyn with concern for septic shock. She was given 4 L of normal saline. The patient did initially respond to IV fluids and her blood pressure stabilized. Her initial lactic acid was 3.4, trending down, with the last lactic acid of 2.2. Blood cultures 4 out of 4 grew gram-positive bacillus (non-anthracis). Her case was discussed with Dr. Morris, who reviewed the blood cultures and recommended vancomycin only and the Zosyn was discontinued. The patient was found last evening to appear to have a change in mental status, appearing to be intoxicated after her boyfriend had left from visiting her. It was suspected that she possibly injected and the patient denied this heavily and became very aggressive with the staff and hole digger who ended up having to call security. She was found to have multiple needles hidden in her bed, which were removed. At that time, she had noted low blood pressure in the 80s, which was not responding to fluids; however, she was noted to be alert and oriented x3. Today, this morning the patient reported she was going to leave against medical advice and admit herself to [facility], where it is closer to her home and that she reported "I am being treated unfairly by the staff and I am not getting good treatment here." It was discussed with the patient that she has sepsis with bacteremia and that is currently being treated with IV antibiotics and IV fluids and the patient insisted on leaving against medical advice. She is able to state the reasons why she is hospitalized and what the risks of leaving against medical advice are such as , severe disability, or severe illness. I asked psychiatrist, Dr. Medeiros, to evaluate the patient for capacity and it was felt that she does have capacity to make the decision to leave against medical advice. Again, I spoke with the patient to try to convince her otherwise and she became aggressive during conservation, again insisting on leaving against medical advice. The risks of leaving against medical advice were discussed with the patient such as , severe illness, and/or severe disability. As well, she refused to be given any oral antibiotics stating she would not go to the pharmacy and she is going straight to [facility]. I did try to call her boyfriend and [id number], in which she gave me permission to do so; however, there was no answer. She signed the AMA form and the patient left in a cab. In regards to the patient's bacteremia and sepsis, this was thought to be secondary to IV drug use. She did undergo a lumbar puncture, which was negative. She underwent a lumbar spine CT, which was negative for epidural abscesses. Brain CT showed a normal CT of the brain with contrast. Transthoracic echocardiogram. Impression: "Global left ventricular wall motion and contractility are within normal limits. Left ventricular systolic function is at the lower limits of normal. The estimated ejection fraction is 50% to 55%. There is mild aortic regurgitation. There is [id number] mitral regurgitation. There is [id number] tricuspid regurgitation. No pulmonary hypertension is noted. There is no significant pericardial effusion. No obvious masses." Abdomen ultrasound. Impression: Trace amount of ascites with a small amount of pericholecystic fluid. Please note that trapper animal, Dr. Amado Anderson, did evaluate the patient the day after she was admitted, in which at that point she was transferred out of the ICU and placed back on the hospitalist service. As well, please note the patient refused any further testing such as followup labs and a scheduled TORO this morning as she left against medical advice. TIME SPENT: Approximately 60 minutes were spent on this case. LAXMI PALMA, SEGMENTAL PAVING SUPERVISOR [id number]/[facility] #: [id number] SAILAJA
== END 2018-02-23 11:15 | disposition left against medical advice (07) | DRG 871 ==
LOC: ED 16:24 → ICU 20:29 → MED 02-22 09:28
PROVIDERS: ADMIT Internal Medicine; ATTEND Internal Medicine
PROC: 009U3ZX Drainage of Spinal Canal, Percutaneous Approach, Diagnostic (ICD-10-PCS; principal; 2018-02-21)
DX: A41.89 Other specified sepsis (principal); R65.21 Severe sepsis with septic shock; N17.9 Acute kidney failure, unspecified; R18.8 Other ascites; F41.9 Anxiety disorder, unspecified; F90.9 Attention-deficit hyperactivity disorder, unspecified type; F32.9 Major depressive disorder, single episode, unspecified; F41.0 Panic disorder [episodic paroxysmal anxiety]; F17.210 Nicotine dependence, cigarettes, uncomplicated; R40.2362 Coma scale, best motor response, obeys commands, at arrival to emergency department; R40.2132 Coma scale, eyes open, to sound, at arrival to emergency department; R40.2242 Coma scale, best verbal response, confused conversation, at arrival to emergency department; R94.5 Abnormal results of liver function studies; I08.3 Combined rheumatic disorders of mitral, aortic and tricuspid valves; F11.10 Opioid abuse, uncomplicated; B19.20 Unspecified viral hepatitis C without hepatic coma; R74.0 Nonspecific elevation of levels of transaminase and lactic acid dehydrogenase [LDH]; Z87.440 Personal history of urinary (tract) infections; Z72.89 Other problems related to lifestyle
CPT/HCPCS: 36415; 70450; 70460; 71045; 72132; 76705; 80053; 80061; 80074; 80307; 80320; 81003; 81015; 82140; 82550; 82803; 82945; 83605; 83690; 83735; 84100; 84157; 84439; 84443; 84484; 85025; 85384; 85610; 85730; 86140; 86308; 86703; 86803; 87040; 87070; 87077; 87086; 87186; 87205; 87476; 87641; 87798; 89051; 93005; 93306; 99285; 99406; A9270-GY; G0480; J0610; J1100; J1644; J1885; J2310; J2543; J3370; J3411; J3475; Q9967

== ENCOUNTER → 2018-03-08 23:16 | Emergency (ER) | payer SELFPAY ==
[~2018-03-08 23:16] MED LIST: Acetaminophen TAB* 325 MG PO ONE; Buprenorphine/Naloxone 8-2 MG SL TAB* 1 TAB PO ONE; Levonorgestrel 1.5 MG TAB PO ONE; Mouth Piece, Nicotine* 1 EACH CARTRIDGE INH PRN; Nicotine Inhaler* 10 MG AMP INH PRN; Raltegravir* 400 MG TAB PO ONE; Tenofovir/Emtricitab 200/300 * TAB PO ONE
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
[2018-03-09 04:44] LABS: ABS Basophils 0 10^3/ul (0-0.2); ABS Eosinophils 0.1 10^3/ul (0-0.6); ABS Lymphocytes 2.4 10^3/ul (1.0-4.8); ABS Monocytes 0.5 10^3/ul (0-0.8); ABS Neutrophils 1.6 10^3/ul (1.5-7.7); ABS Nucleated RBC 0 10^3/ul; Eosinophil % 2.1 % (0-6); Hematocrit 37 % (35-47); Hemoglobin 12.6 g/dl (12.0-16.0); Lymphocyte % 50.7 % (25-47); Mean Corpuscular HGB Conc 34 g/dl (31-36); Mean Corpuscular Hemoglobin 28 pg (27-31); Mean Corpuscular Volume 83 fL (80-97); Mean Platelet Volume 9.1 um3 (7.4-10.4); Nucleated Red Blood Cells % 0; Platelet Count 271 10^3/ul (150-450); Red Blood Count 4.49 10^6/ul (4.00-5.40); Red Cell Distribution Width 15 % (10.5-15); White Blood Count 4.6 10^3/ul (3.5-10.8)
[2018-03-09 05:03] LABS: EGFR Non-African American 96.7 (>60)
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
[2018-03-09 11:29] LABS: Urine Appearance Cloudy; Urine Blood Negative (Negative); Urine Color Yellow; Urine Ketones Negative (Negative); Urine Protein Negative (Negative); Urine Red Blood Cell Trace(0-2/hpf) (Absent); Urine Specific Gravity 1.015 (1.010-1.030); Urine Urobilinogen Negative (Negative); Urine White Blood Cell Trace(0-5/hpf) (Absent)
[2018-03-09 15:36] VITALS: BP 112/70
== END | disposition home or self-care (01) ==
LOC: ED 23:16
DX: F19.10 Other psychoactive substance abuse, uncomplicated (principal); F17.210 Nicotine dependence, cigarettes, uncomplicated; F32.9 Major depressive disorder, single episode, unspecified
CPT/HCPCS: 36415; 80053; 80307; 81003; 81015; 83605; 84484; 85025; 85652; 85730; 86703; 87040; 87077; 87086; 87186; 99284; A9270-GY